=== PATIENT | female | born 1970 | race Caucasian/White ===

== ENCOUNTER → 2018-11-27 | Day surgery (SDC) | payer OTHER ==
[~2018-11-27] MED LIST: PERCOCET 5/3251 TAB PO; POLY119PG PO; RECTICARE30 GM TP
== END | disposition home or self-care (01) ==
LOC: ADM 11-20 13:00 → AMB-ENDOS 11:51
DX: K62.89 Other specified diseases of anus and rectum (principal); Z12.11 Encounter for screening for malignant neoplasm of colon

== ENCOUNTER 2019-12-24 11:01 | Day surgery (SDC) | payer OTHER ==
[2019-12-24] MEDS ORDERED: PERCOCET 5-3251 EACH PO (17:10)
[2019-12-24] MEDS ORDERED: NEURONTIN300 MG PO (17:11)
[2019-12-24] MEDS ORDERED: KETO10TA2 PO (17:11)
== END 2019-12-24 20:00 | disposition home or self-care (01) ==
LOC: CIR.AMB 11:01
PROVIDERS: ATTEND Surgery
DX: K60.1 Chronic anal fissure (principal); Z20.828 Contact with and (suspected) exposure to other viral communicable diseases